=== PATIENT | female | born 2000 | race Two or more races ===

== ENCOUNTER 2021-05-18 09:12 | Emergency (ER) | payer OTHER ==
[~2021-05-18] VITALS: Ht 160 cm; Wt 48.0 kg
[2021-05-18 10:44] VITALS: BP 103/62
== END 2021-05-18 10:46 | disposition home or self-care (01) ==
LOC: EMS 09:12
DX: J40 Bronchitis, not specified as acute or chronic (principal); Z11.1 Encounter for screening for respiratory tuberculosis
CPT/HCPCS: 71045; 99283